=== PATIENT | female | born 1995 | race Caucasian/White ===

== ENCOUNTER 2016-10-01 14:56 | Emergency (ER) | payer BC ==
--- NOTE | ~2016-10-01 | CR169 ---
[facility]. [facility] A Service of [facility] & [facility] / [facility] RADIOLOGY TEXT RESULTS PATIENT: SANKET EPSTEIN LOCATION: SED : [birth year] UNIT #: [id number] AGE: [address]: Josue Ruiz SEX: F ORDER DR: [id number] [place] [id number] E MR#: [id number] Acc #: [id number] NAME: SANKET EPSTEIN : 1995 SEX: F STUDY DATE/TIME: 10/01/2016 15:37 UNIT: SED ROOM: STUDY DESCRIPTION: CR Knee 2 Views Lt Attending Physician: Josue Ruiz P.A.-C. Ordering Physician: Josue Ruiz P.A.-C. MEDICAL IMAGING REPORT This report is preliminary unless electronic signature is present. EXAM Left knee series, 10/01/2016 HISTORY Redness. Fell, scraped on concrete, abrasion anterior kneecap 2 days ago. FINDINGS AP and lateral radiographs of the left knee are presented. No comparison. No fracture. No traumatic malalignment. Mild narrowing medial joint space compartment. No joint effusion. No soft tissue defect, subcutaneous air or radiodense foreign body. Dictated by... Shahram Bernal M.D. THIS IS AN ELECTRONICALLY VERIFIED REPORT Shahram Bernal M.D. at 10/07/2016 10:15 AM [place]/junior TD: 10/01/2016 16:22 JOB #: [id number] MEDICAL IMAGING REPORT Page 1 of 1
== END 2016-10-01 16:50 | disposition home or self-care (01) ==
LOC: SED 14:56
DX: S80.212A Abrasion, left knee, initial encounter (principal); L03.116 Cellulitis of left lower limb; Z23 Encounter for immunization; W19.XXXA Unspecified fall, initial encounter; Y92.9 Unspecified place or not applicable
CPT/HCPCS: 73560; 90471; 90715; 99283